=== PATIENT | male | born 1955 | race Caucasian/White ===

== ENCOUNTER 2023-09-27 10:00 | Outpatient (REF) | payer MEDICARE, MEDICAID, SELFPAY ==
[2023-09-27 11:46] LABS: Alanine Aminotransferase 53 U/L (0-40); Albumin Level 4.1 g/dL (3.5-5.0); Alkaline Phosphatase 104 U/L (39-117); Anion Gap 11 (12-20); Aspartate Amino Transferase 49 U/L (5-37); Bilirubin Direct < 0.2 mg/dL (0.0-0.5); Bilirubin Total 0.2 mg/dL (0.0-1.0); Blood Urea Nitrogen 14 mg/dL (9-16); Calcium 9.4 mg/dL (8.4-10.2); Carbon Dioxide 27 mmol/L (22-29); Chloride 102 mmol/L (96-108); Cholesterol 145 mg/dL (<200); Estimated Glomerular Filt Rate 60; Glucose Random 119 mg/dL (60-115); HDL Cholesterol 42 mg/dL (>40); LDL Cholesterol Calculated 44 mg/dL (<100); Potassium 3.4 mmol/L (3.3-5.1); Sodium 137 mmol/L (135-145); Total Protein 8.2 g/dL (6.5-8.0); Triglycerides 299 mg/dL (<150)
[2023-09-27 12:03] LABS: Reflex LDLD? No
== END 2023-09-27 10:01 | disposition home or self-care (01) ==
LOC: HO.HHCL 10:00
PROVIDERS: Visit Provider Internal Medicine
DX: I10 Essential (primary) hypertension (principal); E78.2 Mixed hyperlipidemia
CPT/HCPCS: 36415; 80048; 80061; 80076

== ENCOUNTER 2024-05-01 11:58 | Outpatient (REF) | payer MEDICARE, MEDICAID, SELFPAY ==
[2024-05-01 14:27] LABS: Prostate Specific Antigen Scr 1.81 ng/mL (<0.05-4.0)
== END 2024-05-01 11:59 | disposition home or self-care (01) ==
LOC: HO.HHCL 11:58
PROVIDERS: Visit Provider Internal Medicine
DX: Z00.00 Encounter for general adult medical examination without abnormal findings (principal); N52.9 Male erectile dysfunction, unspecified; Z12.5 Encounter for screening for malignant neoplasm of prostate
CPT/HCPCS: 36415; 84153

== ENCOUNTER 2024-12-19 10:27 | Outpatient (REF) | payer MEDICARE, MEDICAID, SELFPAY ==
--- OUTSIDE RECORDS SUMMARY | 2024-12-19 10:57 | XMS_ITS | Encounter Summary ---
Author Organization [employer] Address [address] [facility] [address] [place] [address] Care Team Providers Care Career Development Coordinator Name Role Phone Olivier Aguilera MD Primary Care Provide r Pacheco Rodas MD Unavailable [phone] Reason for Visit * Reason Onset Date Comments Referral 10/01/2023 Encounter Details Date Type Department Care Team ([facility] st Contact Info) Description 10/01/2023 Telephone [facility]INE [address] [place], [place] [phone] Olivier Aguilera MD [address] [place], [place] [phone] Referral Social History Tobacco Use Types Packs/Day Years Used Date Smoking Tobacco: Former Cigarettes Passive Smoke Exposure: Past Alcohol Use Standard Drinks/Week Comments Never 0 (1 standard drink = 0.6 oz pur e alcohol) Housing Stability Answer Date Recorded What is your housing situation today? I have tristan ramila 09/25/[address] you li ve. Do you have problems with any of the following? None of the above 09/25/2023 Food Insecurity Answer Date Recorded Within the past 12 months, y ou worried that your food would run out before you got money to buy more: Never True 07/03/2023 Within the past 12 months,th e food you bought just didn't last and you didn't have enough money to get more: Never True 02/2023 Transportation Answer Date Recorded In the past 12 months, has l ack of transportation kept you from medical appts, meetings, work or from getting things needed for daily living? No 07/03/2023 Utilities Answer Date Recorded In the past 12 months, has t he electric, gas, oil or water company threatened to shut off services in your home? No 07/03/2023 Depression Answer Date Recorded Patient Health Questionnaire-2 Score 1 09/25/2023 Sex and Gender Information Value Date Recorded Sex Assigned at Male 06/26/2022 10:15 AM EDT Legal Sex Male 10:15 AM EDT Gender Identity Male 06/26/2022 10:15 AM EDT Sexual Orientation Straight 06/26/2022 10 :15 AM EDT documented as of this encounter Miscellaneous Notes * Telephone Encounter - Dottie Muniz - 10/01/2023 3:01 PM EST Tc from pt requesting a referral to the vision center here at [facility] . documented in this encounter Plan of Treatment Not on file documented as of this encounter Visit Diagnoses Diagnosis Primary hypertension Unspecified essential hypertension Routine eye exam Examination of eyes and vision documented in this encounter Care Teams Career Development Coordinator Relationship Specialty Start Date End Date Olivier Aguilera MD [address] [place] [phone] PCP - General Internal Medicine 05/25/14 Pacheco Rodas MD [address] [place] [phone] Dermatology 03/19/24 documented as of this encounter
--- OUTSIDE RECORDS SUMMARY | 2024-12-19 10:57 | XMS_ITS | Encounter Summary ---
Author Organization [employer] Address [address] [facility] [address] 7[address] [place] [address] Care Team Providers Care Alumni Relations Coordinator Name Role Phone Olivier Aguilera MD Primary Care Provide r Pacheco Rodas MD Unavailable [phone] Encounter Details Date Type Department Care Team (Late st Contact Info) Description 11/07/2023 Telephone [facility] MEDICINE [address] [place], [place] [phone] Olivier Aguilera MD [address] [place], [place] [phone] Social History Tobacco Use Types Packs/Day Years Used Date Smoking Tobacco: Former Cigarettes Passive Smoke Exposure: Past Alcohol Use Standard Drinks/Week Comments Never 0 (1 standard drink = 0.6 oz pur e alcohol) Housing Stability Answer Date Recorded What is your housing situation today? I have tristanlindy mcgrath 09/25/[address] you li [...] AM EDT documented as of this encounter Plan of Treatment Not on file documented as of this encounter Visit Diagnoses Not on filedocumented in this encounter Care Teams Alumni Relations Coordinator Relationship Specialty Start Date End Date Olivier Aguilera MD [address] [place] [phone] PCP - General Internal Medicine 05/25/14 Pacheco Rodas MD [address] [place] [phone] Dermatology 03/19/24 documented as of this encounter
--- OUTSIDE RECORDS SUMMARY | 2024-12-19 10:57 | XMS_ITS | Encounter Summary ---
Author Organization [employer] Address [address] [facility] 7t [place] [address] Care Team Providers Care Finance Business Partner Name Role Phone Olivier Aguilera MD Primary Care Provide r Pacheco Rodas MD Unavailable [phone] Encounter Details Date Type Department Care Team (Late st Contact Info) Description 01/04/2023 Abstract [facility] MEDICINE [address] [place], [place] [phone] Olivier Aguilera MD [address] [place] [address] Social History Tobacco Use Types Packs/Day Years Used Date Smoking Tobacco: Former Cigarettes Alcohol Use Standard Drinks/Week Comments Never 0 (1 standard drink = 0.6 oz pur e alcohol) Sex and Gender Information Value Date Recorded Sex Assigned at Male 06/26/2022 10:15 AM EDT Legal Sex Male 10:15 AM EDT Gender Identity Male 06/26/2022 10:15 AM EDT Sexual Orientation Straight 06/26/2022 10 :15 AM EDT documented as of this encounter Plan of Treatment Not on file documented as of this encounter Visit Diagnoses Not on filedocumented in this encounter Care Teams Finance Business Partner Relationship Specialty Start Date End Date Olivier Aguilera MD [address] [place], [place] [phone] PCP - General Internal Medicine 05/25/14 Pacheco Rodas MD [address] [place] [phone] Dermatology 03/19/24 documented as of this encounter
--- OUTSIDE RECORDS SUMMARY | 2024-12-19 10:57 | XMS_ITS | Clinical Summary ---
Author Organization [address] [place] [address] Address [address] [place] [address] Phone Care Team Providers Care Nanosystems Engineer Name Role Phone Olivier Proctor MD Primary Care Provi laz Allergies Active Allergy Reactions Criticality Noted Date Comments Aspirin 07/28/2021 Medications atorvastatin (LIPITOR) 40 mg tablet Take 1 tablet (40 mg total) by mouth 1 (one) time each day. at bedtime. Active hydroCHLOROthia zide (HYDRODIURIL) 25 mg tablet Take 1.5 tablets (37.5 mg total) by mouth 1 (one) time each day in the morning. Active ketorolac (ACULAR) 0.5 % ophthalmic solution Administer 5 drops into both eyes 4 (four) times a day. 5 Active losartan (COZAAR) 100 mg tablet Take 1 tablet (100 mg total) by mouth 1 (one) time each day. at bedtime. Active Active Problems Problem Noted Date Diagnosed Date Ganglion cyst of dorsum of right wrist 2 Ganglion, finger joint of left hand 09/22/2021 Mass of finger of left hand 09/22/2021 Encounters Date Type Department Care Team Description 11/26/2024 11:30 AM EDT Office Visit Bariatric [address] [address] Orquidea Green MD Hx of skin cancer, basal cell (Primary Dx) 11/03/2024 1:00 PM EDT Procedure visit [facility] [address] [address] Orquidea Green MD Lipoma of left forearm (Primary Dx); Lipoma of forearm from Last 3 Months Medical History Medical History Date Comments Essential hypertension DX:Essent ial hypertension Hyperlipidemia DX:Hyperlipidemi a Social History Tobacco Use Types Packs/Day Years Used Date Smoking Tobacco: Former Smokeless Tobacco: Never Alcohol Use Standard Drinks/Week Comments Never 0 (1 standard drink = 0.6 oz pur e alcohol) Sex and Gender Information Value Date Recorded Sex Assigned at Not on file Legal Sex Male 2:27 AM EST Gender Identity Not on file Sexual Orientation Not on file Obstetrics History Last Filed Vital Signs Vital Sign Reading Time Taken Comments Blood Pressure 134/77 11/26/2024 11:00 AM EDT Pulse 77 11/26/2024 11:00 AM EDT Temperature 36.6 ??C (97.8 ??F) 11/26/2024 11:00 AM E DT Respiratory Rate - - Oxygen Saturation 99% 11/03/2024 1:17 PM EDT Inhaled Oxygen Concentration - - Weight 92.1 kg (203 lb) 11/26/2024 11:00 AM EDT Height 172.7 cm (5' 8 ) 11/26/2024 11:00 AM EDT Body Mass Index 30.87 11/26/2024 11:00 AM EDT Plan of Treatment Health Maintenance Due Date Last Done Comments Pneumococcal Vaccine: 50+ Years (1 of 2 - PCV) 1974 Zoster Vaccines (1 of 2) 1974 Abdominal Aortic Aneurysm (AAA) Screen 08/06/2022 Cholesterol Screening (Lipid Panel) 08/06/2022 Depression Screening 08/06/2022 Hepatitis C Screening 08/06/2022 Medicare Annual Wellness Visit 08/06/2022 Social Influencers of Health Screening 08/06/2022 Falls Risk Assessment 2022 COVID-19 Vaccine (3 - 2023-2 5 season) 2024 07/13/2021, 11/22/2020 Hypertension/CHF/CAD Annual BMP Blood Test 09/09/2024 Influenza Vaccine (Season Ended) 2025 Colorectal Cancer Screening: FIT-DNA (Cologuard) 10/27/2026 10/28/2023, 11/20/2019 RSV Immunization Adult Patients (1 - 1-dose 75+ series) 2032 DTaP,Tdap,and Td Vaccines (3 - Td or Tdap) 05/01/2034 05/01/2024, 03/23/2011 Hepatitis A Vaccines Aged Out 09/24/2001 No long er eligible based on patient's age to complete this topic MMR Vaccines Aged Out 09/24/2001, 08/13/2000 No longer eligible based on patient's age to complete this topic Hepatitis B Vaccines Completed 03/11/2002, 10/29/2001, 09/24/2001 HIB Vaccines Aged Out No longer eligi ble based on patient's age to complete this topic HPV Vaccines Aged Out No longer eligi ble based on patient's age to complete this topic IPV Vaccines Aged Out No longer eligi ble based on patient's age to complete this topic Meningococcal ACWY Vaccine Aged Out N o longer eligible based on patient's age to complete this topic Meningococcal B Vaccine Aged Out No l onger eligible based on patient's age to complete this topic RSV Immunization Patients Under 20 months Aged Out No longer eligible b ased on patient's age to complete this topic Varicella Vaccines Aged Out No longer eligible based on patient's age to complete this topic Procedures Procedure Name Priority Date/Time Associated Diagnosis Comments TISSUE EXAM Routine 11/03/2024 1:25 PM EDT Lipoma of left forearm from Last 3 Months Results * Tissue exam (11/03/2024 1:25 PM EDT) Final Diagnosis Skin, left forearm-excision: -BASAL CELL CARCINOMA, NODULAR TYPE -Deep and peripheral margins negative 11/05/2024 8:19 AM EDT [facility] Clinical Information Short stitch superior long stitch lateral 11/05/2024 8:19 AM EDT [facility] Gross Description A. Forearm, Left, lipoma: Labeled forearm L . Received in formalin is a 4.7 x 1.0 cm oriented moreno-white skin is excised to depth of 0.5 cm. There is a short suture designating superior, and a long suture designating lateral per the requisition. The epidermis displays by 0.8 cm firm centrally crusted moreno-white scarred lesion, located 0.2 cm from the lateral margin. The lateral margin is inked blue, medial black, superior tip epidermis inked green. The specimen is sectioned in a cruciate manner. Behavioral Assistant sections, to include entirety of the lesion, are submitted as follows: 1, cruciate superior and inferior tips, superior green), two pieces 2-4, sequential cross-sections from superior to inferior, two pieces each. GIDEON 11/05/2024 8:19 AM EDT [facility] Disclaimer Unless otherwise specified, all tissue is 10% NB formalin fixed and paraffin embedded. 11/05/2024 8:19 AM EDT [facility] Tissue Structure of left forearm / Unknown Non-blood Collection / Unknown 11/03/2024 1:25 PM EDT 11/03/2024 1:39 PM EDT Comment:Short stitch superio r long stitch lateral us Orquidea Green MD LAB PATHOLOGY ORDERABLE S Final Result [facility] [address] [place] [address], from Last 3 Months Insurance [employer] MEDICARE ADVANTAGE MEDICAID - [place] Care Teams Nanosystems Engineer Relationship Specialty Start Date End Date Olivier Proctor MD [address] [place] [address] [place] [address] PCP - General Internal Medicine 07/28/21
--- OUTSIDE RECORDS SUMMARY | 2024-12-19 10:57 | XMS_ITS | Encounter Summary ---
Author Organization [employer] Address [address] [place] [address] Care Team Providers Care Desilverizer Name Role Phone Olivier Aguilera MD Primary Care Provide r Pacheco Rodas MD Unavailable [phone] Reason for Visit * Reason Onset Date Comments PRE-OP 09/16/2024 Encounter Details Date Type Department Care Team ([facility] st Contact Info) Description 09/16/2024 Telephone [facility] MEDICINE [address] [place], [place] [phone] Olivier Aguilera MD [address] [place], [place] [phone] PRE-OP Social History Tobacco Use Types Packs/Day Years [...] t he electric, gas, oil or water [employer] threatened to shut off services in your [...] encounter Miscellaneous Notes * Telephone Encounter - Jesika Joseph - 09/17/2024 10:11 AM EST Facility agreed to contact pt and advise of pre op appointment on 09/19/24 with [place]. * Telephone Encounter - Nino Blanco - 09/16/2024 11:18 AM EST Date of Surgery: 10/07/2024 Surgical procedure being done: catharact right eye Type of anesthesia: MAC Lab needed: No EKG: No Surgeon's name: Facility name: [facility], Surgeon's office number: [phone] Surgeon's office fax number: [phone] Contact name (person you spoke with): Didi Last office note from surgeon requested: Yes Send Message to Jesika Joseph and Terry Dill documented in this encounter Plan of Treatment Not on file documented as of this encounter Visit Diagnoses Not on filedocumented in this encounter Care Teams Desilverizer Relationship Specialty Start Date End Date Olivier Aguilera MD [address] [place] [phone] PCP - General Internal Medicine 05/25/14 Pacheco Rodas MD [address] [place] [phone] Dermatology 03/19/24 documented as of this encounter
[2024-12-19 12:21] LABS: Alanine Aminotransferase 67 U/L (0-40); Albumin Level 4.1 g/dL (3.5-5.0); Alkaline Phosphatase 98 U/L (39-117); Anion Gap 11 (12-20); Aspartate Amino Transferase 66 U/L (5-37); Bilirubin Total 0.4 mg/dL (0.0-1.0); Blood Urea Nitrogen 15 mg/dL (9-16); Calcium 9.6 mg/dL (8.4-10.2); Carbon Dioxide 27 mmol/L (22-29); Chloride 105 mmol/L (96-108); Cholesterol 176 mg/dL (<200); Estimated Glomerular Filt Rate > 60; Glucose Random 122 mg/dL (60-115); HDL Cholesterol 45 mg/dL (>40); LDL Cholesterol Calculated 57 mg/dL (<100); Potassium 3.8 mmol/L (3.3-5.1); Sodium 139 mmol/L (135-145); Total Protein 7.9 g/dL (6.5-8.0); Triglycerides 373 mg/dL (<150)
== END 2024-12-19 10:28 | disposition home or self-care (01) ==
LOC: HO.HHCL 10:27
PROVIDERS: Visit Provider Internal Medicine
DX: I10 Essential (primary) hypertension (principal)
CPT/HCPCS: 36415; 80053; 80061